=== PATIENT | male | born 1990 | race Caucasian/White ===

== ENCOUNTER 2016-12-24 09:31 | Emergency (ER) | payer OTHER ==
[2016-12-24 12:03] LABS: BASOPHIL % 0.4 % (0-2); PLATELET COUNT 217 x10^3mcL (130-400); RED CELL DISTRIBUTION WIDTH 13.1 % (11.5-14.5)
[2016-12-24 12:11] LABS: CALCIUM 8.9 mg/dL (8.5-10.1); CARBON DIOXIDE 30.4 mmol/L (21-32); CHLORIDE SERUM 104 mmol/L (98-107); CREATININE SERUM 0.8 mg/dL (0.7-1.3); GFR1 > 60 mL/min; GLUCOSE SERUM 92 mg/dL (74-106); POTASSIUM SERUM 3.7 mmol/L (3.5-5.1); SODIUM SERUM 140 mmol/L (136-145)
[2016-12-24 12:22] LABS: ALBUMIN 4.3 g/dL (3.4-5.0); ALKALINE PHOSPHATASE 50 U/L (46-116); ALT/SGPT 19 U/L (16-63); AMYLASE 51 U/L (25-115); AST/SGOT 16 U/L (15-37); BILIRUBIN TOTAL 2.14 mg/dL (0.20-1.00); LIPASE 110 IU/L (73-393); TOTAL PROTEIN, SERUM 7.2 g/dL (6.4-8.2)
[2016-12-24 14:02] LABS: microscopic required? NO
[2016-12-24 14:14] LABS: UA SPECIFIC GRAVITY 1.025 (1.005-1.035); urine erythrocyte NEGATIVE (NEGATIVE)
[2016-12-24 15:24] VITALS: BP 98/58
== END 2016-12-24 15:24 | disposition home or self-care (01) ==
LOC: ED 09:31
PROVIDERS: Emergency Medicine
DX: R10.13 Epigastric pain (principal)
CPT/HCPCS: J1170; J2405

== ENCOUNTER 2017-12-01 01:17 | Observation (INO) | payer OTHER ==
[~2017-12-01] VITALS: Ht 180.3 cm; Wt 71.7 kg
[2017-12-01 01:22] VITALS: Ht 180.3 cm; Wt 71.7 kg
[2017-12-01 02:01] LABS: BASOPHIL % 0.3 % (0-2); PLATELET COUNT 201 x10^3mcL (130-400)
[2017-12-01 02:11] LABS: CALCIUM 8.7 mg/dL (8.5-10.1); CARBON DIOXIDE 28.2 mmol/L (21-32); CHLORIDE SERUM 105 mmol/L (98-107); GFR1 > 60 mL/min; GLUCOSE SERUM 121 mg/dL (74-106); POTASSIUM SERUM 3.8 mmol/L (3.5-5.1); SODIUM SERUM 141 mmol/L (136-145)
[2017-12-01 02:16] LABS: ALBUMIN 3.9 g/dL (3.4-5.0); ALKALINE PHOSPHATASE 51 U/L (46-116); AMYLASE 64 U/L (25-115); BILIRUBIN TOTAL 2.54 mg/dL (0.20-1.00); LIPASE 118 IU/L (73-393); TOTAL PROTEIN, SERUM 7.1 g/dL (6.4-8.2)
[2017-12-01 02:20] LABS: AMPHETAMINE QUAL UR NONE DETECTED (NEG <=1000)
[2017-12-01 02:30] LABS: ALT/SGPT 21 U/L (16-63); AST/SGOT 18 U/L (15-37)
[2017-12-01] MEDS ORDERED: MULTIVITAMIN1 SGL (04:59)
[2017-12-01] MEDS ORDERED: PROBIOTIC1 EAC1 (04:59)
[2017-12-01 07:44] LABS: T3 TOTAL 1.12 ng/mL
[2017-12-01 07:58] LABS: MAGNESIUM 1.8 mg/dL (1.8-2.4); PHOSPHOROUS 3.6 mg/dL (2.5-4.9)
[2017-12-01 08:06] LABS: CHOLESTEROL/HDL RATIO 2.1
[2017-12-01 08:27] LABS: FREE T4 0.86 ng/dL (0.76-1.46); T4(THYROXINE) 6.2 ug/dL (4.7-13.3)
[2017-12-01 09:50] VITALS: BP 105/63
[2017-12-01 13:17] VITALS: BP 104/59
[2017-12-01 16:23] VITALS: BP 103/60
[2017-12-01 19:53] VITALS: BP 106/61
[2017-12-02 05:55] LABS: UA SPECIFIC GRAVITY >=1.030 (1.005-1.035); microscopic required? YES; urine erythrocyte 2+ (NEGATIVE)
[2017-12-02 05:56] VITALS: BP 112/63
[2017-12-02 06:36] LABS: BASOPHIL % 0.2 % (0-2); PLATELET COUNT 194 x10^3mcL (130-400); RED CELL DISTRIBUTION WIDTH 12.9 % (11.5-14.5)
[2017-12-02 06:48] LABS: CALCIUM 8.9 mg/dL (8.5-10.1); CARBON DIOXIDE 27.9 mmol/L (21-32); CHLORIDE SERUM 107 mmol/L (98-107); GFR1 > 60 mL/min; GLUCOSE SERUM 106 mg/dL (74-106); MAGNESIUM 2.4 mg/dL (1.8-2.4); PHOSPHOROUS 3.4 mg/dL (2.5-4.9); POTASSIUM SERUM 3.8 mmol/L (3.5-5.1); SODIUM SERUM 143 mmol/L (136-145)
[2017-12-02] MEDS ORDERED: FLA500 PO (07:11)
[2017-12-02] MEDS ORDERED: IBUPROFEN600 MG PO (07:26)
[2017-12-02] MEDS ORDERED: LAC PO (07:28)
[2017-12-02 09:02] VITALS: BP 105/64
[2017-12-02 12:01] VITALS: BP 107/64
[2017-12-02 13:40] VITALS: BP 105/59
[2017-12-02] MEDS ORDERED: CIPRO500 MG PO (14:05)
[2017-12-02 14:10] VITALS: BP 109/61
[2017-12-02 14:25] VITALS: BP 109/61
== END 2017-12-02 15:28 | disposition home or self-care (01) | DRG 391 ==
LOC: ED 01:17 → DU 05:07
PROVIDERS: Emergency Medicine; Family Medicine
PROC: 0DBH8ZX Excision of Cecum, Via Natural or Artificial Opening Endoscopic, Diagnostic (ICD-10-PCS; principal; 2017-12-01)
PROC: 0DBF8ZX Excision of Right Large Intestine, Via Natural or Artificial Opening Endoscopic, Diagnostic (ICD-10-PCS; principal; 2017-12-01)
PROC: 0DBN8ZX Excision of Sigmoid Colon, Via Natural or Artificial Opening Endoscopic, Diagnostic (ICD-10-PCS; principal; 2017-12-01)
PROC: 0DBP8ZX Excision of Rectum, Via Natural or Artificial Opening Endoscopic, Diagnostic (ICD-10-PCS; principal; 2017-12-01)
DX: K52.9 Noninfective gastroenteritis and colitis, unspecified (principal); N17.0 Acute kidney failure with tubular necrosis; N39.0 Urinary tract infection, site not specified; R31.9 Hematuria, unspecified; E80.6 Other disorders of bilirubin metabolism; J45.909 Unspecified asthma, uncomplicated; Z68.22 Body mass index [BMI] 22.0-22.9, adult
CPT/HCPCS: 45378; 83880; 84439; G0378; J1200; J1610; J1885; J1956; J2250; J2310; J2550; J3010; J3490; J7030; Q0092